=== PATIENT | male | born 1965 | race Caucasian/White ===

== ENCOUNTER 2024-04-02 11:05 | Emergency (ER) | payer OTHER, SELFPAY ==
--- NOTE | ~2024-04-02 | XR_ITS ---
EXAMINATION: XR ankle LT min 3V (accession [id number]), XR foot LT min 3V (accession [id number]) CLINICAL INFORMATION: fall, pain, swelling COMPARISON: None. TECHNIQUE: AP, lateral, and oblique views of the foot and 2 views ankle FINDINGS: Osseous fragments adjacent to the medial malleolus may reflect sequelae of age-indeterminate avulsion fracture. Joint spaces are maintained. Achilles tendon enthesopathy. Marked soft tissue swelling most notably along the lateral malleolus greater than medial malleolus, consider follow-up radiographs in 2 weeks to assess for any radiographically occult nondisplaced distal fibular fracture. No tibiotalar joint effusion. XR/XR ankle LT min 3V IMPRESSION: 1. Osseous fragments adjacent to the medial malleolus may reflect sequelae of age-indeterminate avulsion fracture, recommend correlation with point tenderness. 2. Marked soft tissue swelling most notably along the lateral malleolus greater than medial malleolus, consider follow-up radiographs in 2 weeks to assess for any radiographically occult nondisplaced distal fibular fracture. Electronically signed by: Lilly Carrasco MD 04/02/2024 01:40 PM EDT
--- NOTE | ~2024-04-02 | XR_ITS ---
EXAMINATION: XR ankle LT min 3V (accession [id number]), XR foot LT min 3V (accession [id number]) CLINICAL INFORMATION: fall, pain, swelling COMPARISON: None. TECHNIQUE: AP, lateral, and oblique views of the foot and 2 views ankle FINDINGS: Osseous fragments adjacent to the medial malleolus may reflect sequelae of age-indeterminate avulsion fracture. Joint spaces are maintained. Achilles tendon enthesopathy. Marked soft tissue swelling most notably along the lateral malleolus greater than medial malleolus, consider follow-up radiographs in 2 weeks to assess for any radiographically occult nondisplaced distal fibular fracture. No tibiotalar joint effusion. XR/XR foot LT min 3V IMPRESSION: 1. Osseous fragments adjacent to the medial malleolus may reflect sequelae of age-indeterminate avulsion fracture, recommend correlation with point tenderness. 2. Marked soft tissue swelling most notably along the lateral malleolus greater than medial malleolus, consider follow-up radiographs in 2 weeks to assess for any radiographically occult nondisplaced distal fibular fracture. Electronically signed by: Lilly Carrasco MD 04/02/2024 01:40 PM EDT
[2024-04-02 11:08] VITALS: BP 125/58; PULSE 62; RESP 16; TEMP 36.6; O2SAT 95; BMI 27.3
--- NOTE | 2024-04-02 11:09 | ED.LOWEXIN ---
HPI - Extremity Injury (Lower) General Chief Complaint: Extremity Injury, Lower Stated Complaint: l foot inj Time Seen by Provider: 04/02/24 11:14 Source: patient Mode of arrival: ambulatory Limitations: no limitations History of Present Illness ED Provider: BRETT MEDRANO PA-C HPI Narrative: 59 year old male with no significant pmhx presents to the ED today for evaluation of left ankle pain/swelling x 24 hours. Patient states that while at work yesterday he went to jump off of a platform approximately 1 ft high and rolled his ankle on landing. Reports immediate pain to the entire left ankle. Admits to taking a friend's pain pill yesterday with minimal improvement. Does not recall the name. Denies any hzdd-nqf-pyozevu pain medications today. Presents today with increased pain/ swelling to left ankle. He is utilizing crutches that he purchased from the drug store however still bearing weight on the ankle. Denies fever, chills, numbness/tingling/weakness of the LLE. Related Data Previous Rx's ?Medication ?Instructions ?Recorded oxycodone 5 mg tablet 5 mg PO Q8H PRN pain (scale score 04/02/24 4-6) #7 tabs Allergies Allergy/AdvReac Type Severity Reaction Status Date / Time No Known Allergies Allergy Verified 04/02/24 11:11 Review of Systems Review of Systems: Constitutional: No fever, chills, fatigue, night sweats, weight changes ENT/Mouth: No ear pain, hearing loss, nasal congestion, sinus pain, rhinorrhea, sore throat Eyes: No eye pain, swelling, redness, vision changes, discharge Cardio: No chest pain, palpitations, VICTORIA, orthopnea, peripheral edema Pulm: No SOB, cough, sputum, wheezing, dyspnea, hemoptysis GI: No nausea, vomiting, hematemesis, abdominal pain, diarrhea, constipation, hematochezia, melena : No irregular bleeding, dysuria, frequency, urgency, hesitancy, hematuria, flank pain, urinary flow changes, urinary incontinence or retention MSK: No back pain, neck pain, joint pain, myalgias, +left ankle pain Skin: No lesions, rashes Neuro: No weakness, numbness, paresthesias, LOC, dizziness, headache Psych: No anxiety/panic, depression, SI/HI, AH/VH All other systems reviewed and are negative. PMFSH Past Medical History Attestation statement: The following information was validated with the patient. Source: old records reviewed and nursing notes reviewed Social History Social History Advance Directives: No Advance Directives Information Provided: Yes Do you have a plan to hurt others: No Plan Physical Exam Vital Signs: Vital Signs: Last Vital Signs Temp 97.7 F 04/02/24 14:28 Pulse 60 04/02/24 14:28 Resp 20 04/02/24 14:28 BP 138/70 04/02/24 14:28 Pulse Ox 98 04/02/24 14:28 O2 Del Method Room Air 04/02/24 14:28 BMI result Body Mass Index 27.3 Vital signs stable. General: Well appearing, in no acute distress. Skin: Warm, dry, intact. No rashes or lesions. Head: Normocephalic, atraumatic. Cardiac: Chest wall symmetric. RRR. No MRG. No JVD. Lungs: Normal respiratory effort without accessory muscle use. CTA bilaterally. No rales, rhonchi, or wheezes.? Back: No midline spinous or paraspinal tenderness. No step off deformity. Ext: diffuse swelling to entire left ankle, tender to palpation over both medial and lateral malleoli without palpable deformity. No overlying erythema or ecchymosis. Able to move all toes. 2+ PT/DP pulse intact. Ambulating using crutches. cap refill <2 sec. Neuro: AOx3. Normal speech. Sensation intact to light touch. NV intact distally. Ambulating with crutches. Psych: Appropriate mood and affect. Responds appropriately to questions. Course Course Course Narrative: This is an RME performed by Shelly Esteban CNP: Additional HPI, ROS, PE not included below will be deferred to primary provider. Patient is a 59-year-old male who presents emergency department for evaluation of a left ankle injury. States he jumped down approximately foot resulting in a twisting injury. Has pain to the ankle and foot with swelling. Has been using crutches but this continues to persist. Plan : XR Reevaluation(s) Reevaluation #1: 1420 --x-ray left ankle/foot showing osseous fragments adjacent to the medial malleolus, possibly reflecting sequelae of age indeterminate avulsion fracture recommending correlation with point tenderness. There is marked soft tissue swelling most notably along the lateral malleolus greater than medial malleolus, question occult nondisplaced distal fibular fracture. Given point tenderness and swelling over both medial and lateral malleoli, I placed patient in combination posterior short-leg and stirrup splint. patient has crutches with him from home and they were adjusted by agricultural engineering technician for his appropriate height. Educated patient on NWB. Oxycodone sent to pharmacy for pain control. Advised patient to call the orthopedic office Thursday morning to schedule a follow up appointment this week. Patient has remained stable throughout ED visit today. Discussed worrisome signs and symptoms and when to return to the ED. All questions answered at this time. Patient is agreeable with disposition and stable for discharge. Medications Administered Discontinued Medications Generic Name Dose Route Start Last Admin Trade Name Freq PRN Reason Stop Dose Admin Ketorolac Tromethamine 30 mg 04/02/24 11:50 04/02/24 11:55 Ketorolac Tromethamine 30 Mg/Ml Vial IM 04/02/24 11:51 30 mg ONCE ONE Administration Medical Decision Making Medical Decision Making MDM Narrative: 59 year old male with no significant pmhx presents to the ED today for evaluation of left ankle pain/swelling x 24 hours. Vital signs stable. Afebrile. He is nontoxic-appearing in no acute distress. On exam, diffuse swelling to entire left ankle, tender to palpation over both medial and lateral malleoli without palpable deformity. No overlying erythema or ecchymosis. Able to move all toes. 2+ PT/DP pulse intact. Ambulating using crutches. Differential diagnosis includes ligament/tendon injury, fracture, contusion. Unlikely neurovascular compromise, compartment syndrome, threat to limb, dislocation. Presentation not consistent with gout, pseudogout, septic joint, septic arthritis, DVT. Plan for imaging and pain control. Differential Diagnosis Differential Diagnoses: The differential diagnosis associated with the presentation includes as above. Admission/Observation Not indicated Independent Interpretation I performed an independent interpretation of an: Plain X-Ray Interpretation: X-ray left foot/ankle showing avulsion fracture to medial malleoli, agree with radiologist's interpretation. Radiology Impression Discussion of test interpretation with radiology: I have reviewed the radiologist's reading. Radiologist Impression: EXAMINATION: XR ankle LT min 3V (accession [id number]), XR foot LT min 3V (accession [id number]) CLINICAL INFORMATION: fall, pain, swelling COMPARISON: None. TECHNIQUE: AP, lateral, and oblique views of the foot and 2 views ankle FINDINGS: Osseous fragments adjacent to the medial malleolus may reflect sequelae of age-indeterminate avulsion fracture. Joint spaces are maintained. Achilles tendon enthesopathy. Marked soft tissue swelling most notably along the lateral malleolus greater than medial malleolus, consider follow-up radiographs in 2 weeks to assess for any radiographically occult nondisplaced distal fibular fracture. No tibiotalar joint effusion. XR/XR ankle LT min 3V IMPRESSION: 1. Osseous fragments adjacent to the medial malleolus may reflect sequelae of age-indeterminate avulsion fracture, recommend correlation with point tenderness. 2. Marked soft tissue swelling most notably along the lateral malleolus greater than medial malleolus, consider follow-up radiographs in 2 weeks to assess for any radiographically occult nondisplaced distal fibular fracture. Electronically signed by: Lilly Carrasco MD 04/02/2024 01:40 PM EDT Prescription Management I considered prescription management with: Pain Medication (Oxycodone) Social Determinants Patient?s care significantly limited by Social Determinants of Health including: Other Social Determinant of Health Procedures Orthopedic Splinting/Casting Injury #1: Side: left Lower Extremity Injury Location: ankle Lower Extremity Immobilizer: posterior splint and stirrup splint Other Orthopedic Equipment: crutches Critical Care Time Critical Care Time Critical Care Time: No Discharge Plan Discharge Clinical Impression: Avulsion fracture of medial malleolus Patient Disposition: Home, Self-Care Instructions: Ankle Fracture (ED), Crutch Instructions (ED) Additional Instructions: You have been evaluated in the Emergency Department today for ankle pain. Your evaluation showed a fracture of your ankle. I have placed your ankle in a splint today. Avoid getting the splint wet. We have provided crutches for you to use while your ankle heals. Please rest, ice, and elevate your ankle. I recommend you take 600mg ibuprofen every 6 hours or tylenol 650mg every 6 hours as needed for pain. If needed, you can alternate these medications so that you take one medication every 3 hours. For example, at noon take ibuprofen, then at 3pm take tylenol, then at 6pm take ibuprofen.? Please take oxycodone as directed as necessary for breakthrough pain. Please follow-up with an orthopedic surgeon in 1 week. You have been provided with a referral. Call them to make an appointment, they will not call you. Return to the Emergency Department if you experience worsening pain, numbness, tingling, change of color in your toes, or any other concerning symptoms. Prescriptions: New oxycodone 5 mg tablet 5 mg PO Q8H PRN (Reason: pain (scale score 4-6)) Qty: 7 0RF Rx Instructions: Partial Fill upon patient request. Referrals: [facility] Sur[facility] [Provider Group] - 3 days Stand Alone Forms: Work/School Release Interventions: ED Discharge Assessment Last Done: 04/02/24 14:28 Discharge Date/Time: 04/02/24 14:31 Print Language: Ghanaian
--- OUTSIDE RECORDS SUMMARY | 2024-04-02 11:40 | XMS_ITS | Continuity of Care Document ---
Author Organization [facility] Address [address] [place] [address]- Care Team Providers Care Electronic Security Specialist Name Role Phone Not on Staff, PCP Primary Care Physician Unavail able Encounter [facility] Date(s): 08/07/23 - 08/14/23 [facility] [address] [place] [address]- Encounter Diagnosis Elevated BP without diagnosis of hypertension(Discharge Diagnosis) - 08/07/23 History of detached retina repair(Discharge Diagnosis) - 08/07/23 Obese class I(Discharge Diagnosis) - 08/07/23 Dupuytren's contracture of both hands(Discharge Diagnosis) - 08/07/23 Alcohol dependence(Discharge Diagnosis) - 08/07/23 Bilateral chronic knee pain(Discharge Diagnosis) - 08/07/23 Attending Physician: Yovani Sims DO Referring Physician: Daphnie Smith NP Allergies, Adverse Reactions, Alerts No Known Medication Allergies Immunizations Given and Recorded Vaccine Date Status Refusal Reason tetanus-diphtheria toxoids (Td) 06/05/12 Recorded Medications No Known Medications Problem List Condition Confirmation Course Effective Dates Status Health atus Informant Alcohol dependence Confirmed Active Dupuytren's contracture of both hands Confirmed Active Obese class I Confirmed Active Diagnosis Diagnosis Type Effective Dates Health Status Clinical Service Informant Elevated BP without diagnosis of hypertension Discharge Diagnosis 08/07/23 History of detached retina repair 1 Discharge Diagnosis 08/07/23 Obese class I Discharge Diagnosis 08/07/23 Dupuytren's contracture of both hands Discharge Diagnosis 08/07/23 Alcohol dependence Discharge Diagnosis 08/07/23 Bilateral chronic knee pain Discharge Diagnosis 08/07/23 01:23 pm - Daphnie Smith NP 1978 Procedures Procedure Date Related Diagnosis Body Site Status Retinal operation 1 Compl eted 1detached retina repair 1977 Vital Signs Most recent to oldest [Reference Range]: 1 Height 177 cm (08/07/23 1:00 PM) Weight 97.5 kg (08/07/23 1:00 PM) Oxygen Saturation [94-100 %] 97 % (08/07/23 1:00 PM) Pulse Rate [55-90 bpm] 58 bpm (08/07/23 1:00 PM) Body Mass Index [18.5-24.99 kg/m2] 31.12 kg/m2 *>HHI* (08/07/23 1:00 PM) Blood Pressure [90-138/55-84 mm Hg] 160/ 78mm Hg *H* (08/07/23 1:00 PM) Mode of Delivery (Oxygen) Room air (08/07/23 1:00 PM) Blood pressure sites Arm, left (08/07/23 1:00 PM) Social History Social History Type Response Smoking Status Former smoker, quit more than 30 days ago;Former smokeless tobacco user, quit more than 30 days ago; Other: chewing tobacco x 1 year;; entered on: 08/07/23 Sex Note * Leanna Andrew: PERFORM, SIGN, VERIFY Event Display: Patient Education/Instruction Authored Date: [id number] [facility] *[facility] Clinical Summary Name AKSHAT STACY Age 58 Years 1965 PCP Not on Staff, PCP PCP Phone Visit Date 08/07/2023 12:40:00 Additional Instructions: Scheduled Appointments?? Future Appointments ?*Byst??[facility]??[facility] ?Phone:??--?Fax:??-- ?Appt. Date:??08/26/2023?3:15 PM ?Scheduled Provider:??[facility] Clinical Schedule B Follow-Up Instructions ?? With: Address: When: Daphnie Smith [address] [place], [place] [id number] [facility] (1) 11/06/2023 1:00 PM Comments: ANJUM With: Address: When: [address] [address] Within 2 to 3 weeks Comments: Nurse visit- BP check Diagnosis Pain in right knee; Elevated blood-pressure reading, without diagnosis of hypertension; Body mass index [BMI] 30.0-30.9, adult; Alcohol dependence, uncomplicated; Other specified postprocedural states; Palmar fascial fibromatosis [Dupuytren] Medications: Please continue your medications until treatment is completed or stopped by your provider. Discuss any questions related to medications with your provider. Allergy Info:?? No Known Medication Allergies Medications Given This Visit Future Orders ?Folate Level? Order Date:08/07/23?- Complete on or after?08/07/23 ?Vitamin B12 Level? Order Date:08/07/23?- Complete on or after?08/07/23 ?Comprehensive Metabolic Panel? Order Date:08/07/23?- Complete on or after?08/07/23 ?CBC w/ Differential? Order Date:08/07/23?- Complete on or after?08/07/23 ?Knee 3 Views Left? Order Date:08/07/23?- Complete on or after?08/07/23 ?Knee 3 Views Right? Order Date:08/07/23?- Complete on or after?08/07/23 Vital Signs Height 177 cm Weight 97.5 kg BMI 31.12 kg/m2 Blood Pressure 160 mm Hg/78 mm Hg Temperature Pulse Rate 58 bpm Respiratory Rate 02 Sat Mode of Delivery 97 %/Room air You can now view a summary of your hospital visit from the comfort of your home through a free online portal called Higgle. Higgle is a website that allows you to securely view your medical information including discharge summary, medications and follow-up visits. ??You can alsosend a secure electronic message to your doctor???s office to request appointments, renew medications or just ask a question. You can enroll at [email or web address] or register during your next office visit. Disclaimer:?? The information provided is of a general nature and is intended to be used in conjunction with the recommendations and advice of your health care practitioner. ??Every effort has been made to ensure that the information provided is accurate and complete at the time it is provided to you however, as your needs change, or, as new ??information becomes available, different or additional instructions may be required. If you have questions, please consult with your primary care provider or pharmacist, as appropriate. ??This information is not intended to serve as substitution for assessment and evaluation by a qualified health care provider. If you do not have a primary care provider, you may find a [facility] provider by calling [employer] at [phone]. [facility], in keeping with [facility] guidance, no longer requires face masks for staff, patientsor visitors in most situations. Similar to time spent indoors at other locations, there is the chance that you were exposed to respiratory viruses during your time with us (such as flu or COVID-19).? If you develop symptoms concerning for a viral respiratory infection, please seek testing (and treatment if indicated) from your medical provider or home test kit. For information about the plan of care including goals and instructions for your diagnosis, please see the patient education orders section of this document. Patient Education Materials?? The content of this educational material or handout may have been modified, supplemented, or adapted from its original content and format to support your individualized medical care. Patient Care team information Care Team Personnel Name: Not on Staff, PCP Position: S Physician (General Medicine) Member Role: PCP Care Team Related Persons Name: FELIPE STACY Address: [address] [address]
--- OUTSIDE RECORDS SUMMARY | 2024-04-02 11:40 | XMS_ITS | Patient Health Record ---
Author Organization [facility] Address [address] [place] [address] Care Team Providers Care Captain/Check Airman Name Role Phone Yovani Sims Primary Care Provider Demond Rogers Unavailable [phone] ALLERGIES No Known Allergies REASON FOR REFERRAL No Information SOCIAL HISTORY Tobacco Use: Social History Observation Description Date Details (start date - stop date) Former Smoker NA - NA Sex Assigned At : Social History Observation Description Sex Assigned At Unknown Tobacco Use/Smoking Question Answer Notes Are you a: former smoker Additional Findings: Tobacco Non-User Current no n-smoker Alcohol Screen Question Answer Notes Did you have a drink containing alcohol in the p ast year? Yes Points 0 Interpretation Negative Tobacco use other than smoking: Question Answer Notes Are you an other tobacco user? No PROBLEMS Problem Type ICD Code Onset Dates Problem Status W/U Status Risk SNOMED Code Notes Problem Hallux valgus (acquired), left foot (M20.12) Active confirmed Acquired hallux valgus (61078594) VITAL SIGNS Height 5 ft 10 in in 07/17/2023 Weight 190 lbs 07/17/2023 BMI 27.26 kg/m2 07/17/2023 Encounters Encounter Location Date Provider Diagnosis [facility] [address] [place] [address] 07/17/2023 Demond Mi Pain in left foot M79.672 ; Pain in left ankle and joints of left foot M25.572 ; Bursitis of left foot M77.52 ; Hallux valgus (acquired), left foot M20.12 and Hallux limitus of left foot M20.5X2 ASSESSMENTS Encounter Date Diagnosis Assessment Notes Treatment Notes Treatment Clinical Notes 07/17/2023 Pain in left ankle and joints of left foot (ICD-10 - M25.572) 07/17/2023 Pain in left foot (ICD-10 - M79.672) 07/17/2023 Bursitis of left foot (ICD-10 - M77.52) 07/17/2023 Hallux valgus (acquired), left foot (ICD-10 - M20.12) 07/17/2023 Hallux limitus of left foot (ICD-10 - M20.5X2) PLAN OF TREATMENT Pending Test Test Name Order Date X ray : Foot, left 3V 07/17/2023 Insurance Providers Payer Name Payer Address Payer Phone Subscriber Number Group Number Insured Name Patient Relationship to Insured Coverage Start Date Coverage End Date [facility] [address] [facility] [id number] Sai Shearer Self - patient is the insured MEDICAL (GENERAL) HISTORY Medical History History ICD Code Back,Hip,and Knee pain Broken bones detached retina Surgical History Surgery Date(Month/Year) detached retina 1979 broken finger compound fx 1988
--- OUTSIDE RECORDS SUMMARY | 2024-04-02 11:40 | XMS_ITS | Continuity of Care Document ---
Author Organization [facility] Address [address] [place] [address]- Care Team Providers Care Surveillance Sensor Officer Name Role Phone Yovani Sims DO Primary Care Physician [phone] [id number] [address] [place], [place] [address] Allergies, Adverse Reactions, Alerts No Known Medication Allergies Immunizations Given and Recorded Vaccine Date Status Refusal Reason tetanus/diphtheria/pertussis, acel(Tdap) 12/24/23 Given tetanus-diphtheria toxoids (Td) 06/05/12 Recorded Problem List Condition Confirmation Course Effective Dates Status H ealth Status Informant Alcohol dependence Confirmed Active Dupuytren's contracture of both hands Confirmed Active Elevated BP without diagnosis of hypertension Confirmed Active Lump of skin Confirmed Active Obese class I Confirmed Active Bilateral chronic knee pain Confirmed Active Left shoulder pain Confirmed Active Encounter for routine adult health examination Confirmed Active Encounter for screening for cardiovascular disorders Confirmed Active Screening for malignant neoplasm of colon Confirmed Active Screening for malignant neoplasm of prostate Confirmed Active Need for Tdap vaccination Confirmed Active Social History Social History Type Response Smoking Status Former smoker, quit more than 30 days ago;Former smokeless tobacco user, quit more than 30 days ago; Other: chewing tobacco x 1 year;; entered on: 08/07/23 Sex Patient Care team information Care Team Personnel Name: Yovani Sims DO Position: [facility] Physician - Primary Care Member Role: PCP Address: Address: [address] [place] [id number] Care Team Related Persons Name: FELIPE STACY Address: home [address] [place] [id number]
--- OUTSIDE RECORDS SUMMARY | 2024-04-02 11:40 | XMS_ITS | Continuity of Care Document ---
Author Organization [facility] Address [address] [place] [address]- Care Team Providers Care Press Operator Meat Name Role Phone Yovani Sims DO Primary Care Physician Encounter [facility] Date(s): 09/23/23 - 10/23/23 [facility] [address] [place], [place] [address] Allergies, Adverse Reactions, Alerts No Known Medication Allergies Immunizations Given and Recorded Vaccine Date Status Refusal Reason tetanus-diphtheria toxoids (Td) 06/05/12 Recorded Problem List Condition Confirmation Course Effective Dates Status Health St atus Informant Alcohol dependence Confirmed Active Dupuytren's contracture of both hands Confirmed Active Obese class I Confirmed Active Social History Social History Type Response Smoking Status Former smoker, quit more than 30 days ago;Former smokeless tobacco user, quit more than 30 days ago; Other: chewing tobacco x 1 year;; entered on: 08/07/23 Sex Patient Care team information Care Team Personnel Name: Yovani Sims DO Position: [facility] Physician - Primary Care Member Role: PCP Address: Address: [address] [place] [id number] Care Team Related Persons Name: FELIPE STACY Address: home [address] [place] [address]
--- OUTSIDE RECORDS SUMMARY | 2024-04-02 11:40 | XMS_ITS | Continuity of Care Document ---
Author Organization [facility] Address [address] [place] [address]- Care Team Providers Care Retort Press Operator Name Role Phone Yovani Sims DO Primary Care Physician [phone] Encounter [facility] Date(s): 08/07/23 - 09/25/23 [facility] [address], [place] [address] Attending Physician: Not on Staff, Attending MD Allergies, Adverse Reactions, Alerts No Known Medication [...] Primary Care Member Role: PCP Address: Address: [address] [place] [address] Care Team Related Persons Name: FELIPE STACY Address: home [address] [place] [address]
--- OUTSIDE RECORDS SUMMARY | 2024-04-02 11:40 | XMS_ITS | Continuity of Care Document ---
Author Organization [facility] Address [address] [place] [address]- Care Team Providers Care Classroom Technology Coach Name Role Phone Not on Staff, PCP Primary Care Physician Unavail able Encounter [facility] Date(s): 05/14/23 - 06/13/23 [facility] [address] [place] [address]- Patient Care team information Care Team Personnel Name: Not on Staff, PCP Position: [facility] Physician (General Medicine) Member Role: PCP Care Team Related Persons Name: FELIPE STACY Address: [address] [place] [address]
--- OUTSIDE RECORDS SUMMARY | 2024-04-02 11:40 | XMS_ITS | Continuity of Care Document ---
Author Organization [facility] Address [address] [place] [address]- Care Team Providers Care Historian Research Assistant Name Role Phone Yovani [place] DO Primary Care Physician [place] [facility] 08/26/23 - 09/25/23 [facility] [address], [place] [address] Attending Physician: Deena Hunter Admitting Physician: Deena Hunter Referring Physician: Deena Hunter Allergies, Adverse Reactions, Alerts No Known Medication [...] Team Personnel Name: Yovani [place] DO Position: S Physician - Primary Care Member Role: PCP Address: Address: [address] [place] [address] Care Team Related Persons Name: REGIS FELIPE Address: [address] [place] [address]
--- OUTSIDE RECORDS SUMMARY | 2024-04-02 11:40 | XMS_ITS ---
Author Organization [facility] Address [address] [place] [address] Care Team Providers Care Enterprise Solutions Architect Name Role Phone Yovani [place] Primary Care Provider Demond Rogers Unavailable [phone] ALLERGIES No Known Allergies REASON FOR VISIT Foot pain SOCIAL HISTORY Tobacco Use: Social History Observation [...] foot (M20.12) Active confirmed Acquired hallux valgus (02031635) VITAL SIGNS Height 5 ft 10 in in 07/17/2023 Weight 190 lbs 07/17/2023 BMI 27.26 kg/m2 07/17/2023 Encounters Encounter Location Date Provider Diagnosis [facility] [address] [place] [address] 07/17/2023 Demond Mi Pain in left foot M79.672 ; Pain in left ankle and joints of left foot M25.572 ; Bursitis of left foot M77.52 ; Hallux valgus (acquired), left foot M20.12 and Hallux limitus of left foot M20.5X2 ASSESSMENTS Encounter Date Diagnosis Assessment Notes Treatment Notes Treatment Clinical Notes 07/17/2023 Pain in left foot (ICD-10 - M79.672) 07/17/2023 Pain in left ankle and joints of left foot (ICD-10 - M25.572) 07/17/2023 Bursitis of left foot (ICD-10 - M77.52) 07/17/2023 Hallux valgus (acquired), left foot (ICD-10 - M20.12) 07/17/2023 Hallux limitus of left foot (ICD-10 - M20.5X2) PLAN OF TREATMENT Pending Test Test Name Order Date X ray : Foot, left 3V 07/17/2023 Next Appt Details Follow Up: prn, Reason: Progress Notes * Examination Category Sub-Category Detail Notes Neurological SENSORY: Neurological exa m reveals intact sensorium, pain sensation normal, vibration sensation intact, pinprick sensation is normal in the lower extremities, Pt denies, anesthesia, burning, paresthesia, tingling, B/L TINEL'S COMPRESSION: Negative, Saphenous nerve distribution DEEP TENDON REFLEXES: Achilles, 2/4, B/L Dermatologic SKIN FINDINGS: Skin exam reveal s normal texture, elasticity, and turgor. There are no masses. The interspaces are clear Orthopedic BUNION: Dorso-Medially p rominent 1st MPJ, (+) Pain on palpation, inflammation present medially, Lateral tracking 1st MPJ incompletely reducible, LEFT , Limited 1st MPJ Dorsal ROM , Pain assoc with 1st MPJ ROM , at end range of dorsiflexion , Crepitus with ROM absent MUSCLE STRENGTH: 5/5 all groups in a symmetrical fashion , B/L General Examination GENERAL APPEARANCE: Reveals a pleasant, alert, well- nourished, well-developed, well hydrated individual, who demonstrates proper attention to hygiene/body habitus, and is in no acute distress, Pt serves as own historian for office visit today ORIENTED: person, place, and t neli Vascular DP PULSES: 3/4, B/L PT PULSES: 3/4, B/L CAPILLARY FILL TIME: immediate, all digi ts, B/L SKIN TEMPERTURE GRADIENT OF THE LOWER EXTERMITIES: warm to cool, proximal to distal, B/L HAIR GROWTH/TEXTURE/ELASTICITY/TURGOR: n ormal, B/L EDEMA: absent, B/L PIGMENTATION: normal, B/L X-Rays - IMAGING REPORT Findings: normal b one and soft tissue density consistent for patients age and sex Fracture: Negative fractures i dentified HAV: increased First Inte rmetatarsal angleand Hallux Abductus angle consistent with Bunion deformity noted, hypertrophy of the dorsal and medial 1st MTH without subchondral cyst , metatarsus primus elevatus, mild, primus metatarsal protrusion, Plus 1 mm, tibial sesamoid position, 2, there is asymmetrical narrowing of the 1st MPJ joint space, there is increased density of the 1st MPJ with asymmetrical joint space narrowing, there is squaring of the 1st MTH, there is an exostosis located at the dorsal aspect of the 1st MTH Views: 3 views of Foot, AP, LAT, MO, LEFT Clinical Indication(s): Evaluate Biomech anical Deformity History and Physical Notes * HPI (History of Present Illness) Category Sub-Category Detail Notes Foot Pain Location: Inside, Great to e joint, LEFT Duration: several months Course: worse Aggravated: any pressure , kicki ng cement blocks at job/occupation Treatments: rest/alter normal da judi activity
--- OUTSIDE RECORDS SUMMARY | 2024-04-02 11:40 | XMS_ITS | Continuity of Care Document ---
Author Organization [facility] Address [address] [place] [address]- Care Team Providers Care Buckle Sewer Name Role Phone Yovani [place] DO Primary Care Physician [id number] [address] [place] [address]- Encounter Diagnosis Encounter for routine adult health examination(Discharge Diagnosis) - 12/23/23 Alcohol dependence(Discharge Diagnosis) - 12/23/23 Dupuytren's contracture of both hands(Discharge Diagnosis) - 12/23/23 Obese class I(Discharge Diagnosis) - 12/23/23 Elevated BP without diagnosis of hypertension(Discharge Diagnosis) - 12/23/23 Encounter for screening for cardiovascular disorders(Discharge Diagnosis) - 12/24/23 Screening for malignant neoplasm of colon(Discharge Diagnosis) - 12/24/23 Screening for malignant neoplasm of prostate(Discharge Diagnosis) - 12/24/23 Need for Tdap vaccination(Discharge Diagnosis) - 12/24/23 Bilateral chronic knee pain(Discharge Diagnosis) - 12/24/23 Left shoulder pain(Discharge Diagnosis) - 12/24/23 Lump of skin(Discharge Diagnosis) - 12/24/23 Attending Physician: Luis BECK, Daphnie Ramey Allergies, Adverse Reactions, Alerts No Known Medication Allergies Immunizations Given and Recorded Vaccine Date Status Refusal Reason tetanus/diphtheria/pertussis, acel(Tdap) 12/24/23 Given tetanus-diphtheria toxoids (Td) 06/05/12 Recorded Medications No [...] Active Need for Tdap vaccination Confirmed Active Diagnosis Diagnosis Type Effective Dates Health Status Clinical Service Informant Encounter for routine adult health examination Discharge Diagnosis 12/23/23 Alcohol dependence Discharge Diagnosis 12/23/23 Dupuytren's contracture of both hands Discharge Diagnosis 12/23/23 Obese class I Discharge Diagnosis 12/23/23 Elevated BP without diagnosis of hypertension Discharge Diagnosis 12/23/23 Encounter for screening for cardiovascular disorders Discharge Diagnosis 12/24/23 Screening for malignant neoplasm of colon Discharge Diagnosis 12/24/23 Screening for malignant neoplasm of prostate Discharge Diagnosis 12/24/23 Need for Tdap vaccination Discharge Diagnosis 12/24/23 Bilateral chronic knee pain Discharge Diagnosis 12/24/23 Left shoulder pain Discharge Diagnosis 12/24/23 Lump of skin Discharge Diagnosis 12/24/23 Vital Signs Most recent to oldest [Reference Range]: 1 2 3 Height 174.9 cm (12/24/23 8:13 AM) 174.9 cm (12/24/23 7:57 AM) 174.9 cm (12/24/23 7:46 AM) Weight 93.3 kg (12/24/23 7:46 AM) Oxygen Saturation [94-100 %] 97 % (12/24/23 7:46 AM) Pulse Rate [55-90 bpm] 52 bpm *L* (12/24/23 7:46 AM) Body Mass Index [18.5-24.99 kg/m2] 30.5 kg/m2 *>HHI* (12/24/23 7:46 AM) Blood Pressure [90-138/55-84 mm Hg] 128/76mm Hg (12/24/23 8:13 AM) 148/84mm Hg *H* (12/24/23 7:57 AM) 142/84mm Hg *H* (12/24/23 7:46 AM) Blood pressure sites Arm, right (12/24/23 7:57 AM) Arm, right (12/24/23 7:46 AM) Weight Obtained Via Standing scale (12/24/23 7:46 AM) Social History Social History Type Response Smoking Status Former smoker, quit more than 30 days ago;Former smokeless tobacco user, quit more than 30 days ago; Other: chewing tobacco x 1 year;; entered on: 08/07/23 Sex Note * Kimmie Wiggins: PERFORM Event Display: Patient Education/Instruction Authored Date: [id number] Ambulatory Adult Visit Summary [facility] [address] [place] [address] Name: AKSHAT STACY : 1965?? Visit: 12/24/2023 07:40?? Ambulatory Visit Instructions ?? Your Care Team Primary Care Provider Levi FRANKS, Yovani? This Visit Provider Daphnie Smith NP Your Diagnosis Encounter for routine adult health examination Alcohol dependence Dupuytren's contracture of both hands Obese class I Elevated BP without diagnosis of hypertension Encounter for screening for cardiovascular disorders Screening for malignant neoplasm of colon Screening for malignant neoplasm of prostate Need for Tdap vaccination Bilateral chronic knee pain Left shoulder pain Lump of skin Vitals Signs Pulse Rate:??52 bpm??Low Height: 174.9 cm Systolic Blood Pressure: 128 mm Hg Weight: 93.3 kg Diastolic Blood Pressure: 76 mm Hg Body Mass Index:??30.5 kg/m2??Critical Oxygen Saturation: 97 % Body surface area: 2.13 What to do next Instructions From Your Provider 1. complete fasting labs--ok for black coffee and water Follow-Up Appointments Follow Up with??Daphnie Smith NP When:??12/27/2024 07:40 AM EDT Where: [address] [place] [address]- Future Orders XR Knee 1 or 2 Views Left, Routine, Reason for Exam: Pain, Once, *Est. 12/24/23 XR Knee 1 or 2 Views Right, Routine, Reason for Exam: Pain, Once, *Est. 12/24/23 XR Shoulder Min 2 Views Left, Routine, Reason for Exam: Pain, Once, *Est. 12/24/23 Lipid Panel - Routine, Once, 12/24/23 8:00:00 EDT, Order for Today, [facility], Blood?? PSA Screen - Routine, Once, 12/24/23 8:07:00 EDT, Order for Today, [facility], Blood?? Test Performed Below is a partial list of the tests performed during your Visit. You may have had other tests and procedures not included in this list. Please discuss all test results with your provider. Lipid Panel?-- Results Pending -- PSA Screen?-- Results Pending -- You will be contacted within 72 hours with your results. Medications and Immunizations Administered Immunizations Given During Visit Given Vaccine Date tetanus/diphtheria/pertussis, acel(Tdap) 12/24/2023 Medications Given During Visit Medication ?? Dose ?? Route ?? Last Dose Times ?? tetanus/diphtheria/pertussis, acel(Tdap)?0.50 mL?? Intramuscular?? 24-DEC-2023 08:17:00.00?? Allergies (NKA means No Known Allergies) No Known Medication Allergies Common Emergency Awareness Tips IS IT A STROKE? Act FAST and Check for these signs: FACE Does the face look uneven? ARM Does one arm drift down? SPEECH Does their speech sound strange? TIME Call at any sign of stroke ?? Heart Attack Signs Chest discomfort: Most heart attacks involve discomfort in the center of the chest and lasts more than a few minutes, or goes away and comes back. It can feel like uncomfortable pressure, squeezing, fullness or pain. Discomfort in upper body: Symptoms can include pain or discomfort in one or both arms, back, neck, jaw or stomach. Shortness of breath: With or without discomfort. Other signs: Breaking out in a cold sweat, nausea, or lightheaded. Remember, MINUTES DO MATTER. If you experience any of these heart attack warning signs, call to get immediate medical attention! ?? Smoking can increase your chances of developing chronic health problems and can cause harmful effects to other family members in your house. If you smoke, you are strongly encouraged to quit. Please call [employer] at [phone] or 8-081-544Marfeel ([phone]) or log in to [email or web address] for referrals to smoking cessation programs. ?? The National Suicide Prevention Hotline is available 23/02 if you or someone you know needs to find a reason to keep living. By calling 2-995-382-talk (2233) you'll be connected to a skilled, trained counselor at a crisis center in your area. [facility] Portal You can view and manage your care through the patient portal or by using a health care anna of your choosing. [employer] is a website that allows you to securely view your medical information including your hospital discharge summary, office visit summaries, medications and follow-up visits. You can also request appointments, renew medications, and request access to your medical information using a health care anna of your choosing, or just ask a question. You can enroll at [email or web address] or register during your next office visit. [facility], in keeping with [facility] guidance, no longer requires face masks for staff, patientsor visitors in most situations. Similiar to time spent indoors at other locations, there is the chance that you were exposed to repiratory viruses during your time with us (such as flu or COVID-19). If you develop symptoms concerning for a viral respiratory infection, please seek testing (and treatment if indicated) from your medical provider or home test kit. ?? Disclaimer: The information provided is of a general nature and is intended to be used in conjunction with the recommendations and advice of your health care practitioner. Every effort has been made to ensure that the information provided is accurate and complete at the time it is provided to you however, as your needs change, or, as new information becomes available, different or additional instructions may be required. ?? If you have questions, please consult with your primary care provider or pharmacist, as appropriate. This information is not intended to serve as substitution for assessment and evaluation by a qualified health care provider. If you do not have a primary care provider, you may find a [facility] provider by calling [facility] at [phone]. Patient Care team information Care Team Personnel Name: Yovani [place] DO Position: [facility] Physician - Primary Care Member Role: PCP Address: Address: [address] [place] [address] [place] Care Team Related Persons Name: FELIPE STACY Address: [address] [address]
--- OUTSIDE RECORDS SUMMARY | 2024-04-02 11:40 | XMS_ITS | Continuity of Care Document ---
Author Organization [facility] Address [address] [place] [address]- Care Team Providers Care Nc Machinist Name Role Phone Yovani [place] DO Primary Care Physician [phone] Encounter [facility] Date(s): 09/23/23 - 10/23/23 [facility] [address] [place], [place] [address] Allergies, Adverse Reactions, Alerts No Known Medication [...] Primary Care Member Role: PCP Address: Address: [address] [place] [address] Care Team Related Persons Name: FELIPE STACY Address: home [address] [place] [address]
--- OUTSIDE RECORDS SUMMARY | 2024-04-02 11:40 | XMS_ITS | Continuity of Care Document ---
Author Organization [facility] Address [address] [place] [address]- Care Team Providers Care Client Advisor Name Role Phone Yovani [place] DO Primary Care Physician [id number] Date[facility] 08/08[facility] 12/06/23 [facility] [address], [place] [address] Attending Physician: Luis BECK, Daphnie Ramey Allergies, [...] Primary Care Member Role: PCP Address: Address: [address] [place] [address] Care Team Related Persons Name: FELIPE STACY Address: home [address] [place] [address]
[2024-04-02] MEDS: Ketorolac Tromethamine 30 MG/ML VIAL IM (11:55)
--- NOTE | 2024-04-02 14:21 | PC.NURSE ---
pt splinted by provider, tolerated well
[2024-04-02 14:28] VITALS: BP 138/70; PULSE 60; RESP 20; TEMP 36.5; O2SAT 98
--- NOTE | 2024-04-02 14:28 | PC.NURSE ---
pts own crutches adjusted to appropriate height and crutch training provided.
== END 2024-04-02 14:31 | disposition home or self-care (01) ==
PROVIDERS: Emergency Provider Emergency Medicine
DX: S82.52XA Displaced fracture of medial malleolus of left tibia, initial encounter for closed fracture (principal); X50.1XXA Overexertion from prolonged static or awkward postures, initial encounter; Y93.39 Activity, other involving climbing, rappelling and jumping off; Y92.89 Other specified places as the place of occurrence of the external cause; Y99.0 Civilian activity done for income or pay
CPT/HCPCS: 29515; 73610; 73630; 96372; 99283; 99284; J1885

== ENCOUNTER 2024-04-04 08:37 | Emergency (ER) | payer OTHER, SELFPAY ==
--- NOTE | ~2024-04-04 | XR_ITS ---
EXAMINATION: X-RAY ANKLE, LEFT. XRAY FOOT LEFT, LEFT. CLINICAL INFORMATION: Left ankle and foot pain. Possible fracture. COMPARISON: Radiographs 04/02/2024 TECHNIQUE: 3 views of the left ankle. 3 views of the left foot. Images are performed with the patient in a cast. FINDINGS: There are small chronic calcifications at the tip of the medial malleolus. The ankle mortise is preserved. There is no acute fracture or malalignment. Soft tissue swelling is slightly decreased. XR/XR ankle LT 2V IMPRESSION: No acute fracture. Soft tissue swelling is slightly decreased. Electronically signed by: Tone Hayward MD 04/04/2024 09:56 AM EDT
--- NOTE | ~2024-04-04 | XR_ITS ---
EXAMINATION: X-RAY ANKLE, LEFT. XRAY FOOT LEFT, LEFT. CLINICAL INFORMATION: Left ankle and foot pain. Possible fracture. COMPARISON: Radiographs 04/02/2024 TECHNIQUE: 3 views of the left ankle. 3 views of the left foot. Images are performed with the patient in a cast. FINDINGS: There are small chronic calcifications at the tip of the medial malleolus. The ankle mortise is preserved. There is no acute fracture or malalignment. Soft tissue swelling is slightly decreased. XR/XR foot LT 2V IMPRESSION: No acute fracture. Soft tissue swelling is slightly decreased. Electronically signed by: Tone Hayward MD 04/04/2024 09:56 AM EDT
[2024-04-04 08:45] VITALS: BP 140/59; PULSE 56; RESP 18; TEMP 36.4; O2SAT 96; BMI 28.8
--- OUTSIDE RECORDS SUMMARY | 2024-04-04 08:57 | XMS_ITS ---
Author Organization [facility] Address [address] [place] [address] Care Team Providers Care Civil Engineering Drafter Name Role Phone Yovani [place] Primary Care Provider Demond Rogers Unavailable [phone] ALLERGIES No Known Allergies REASON FOR VISIT [...] foot (M20.12) Active confirmed Acquired hallux valgus (88781360) VITAL SIGNS Height 5 ft 10 in in 07/17/2023 Weight 190 lbs 07/17/2023 BMI 27.26 kg/m2 07/17/2023 Encounters Encounter Location Date Provider Diagnosis [facility] [address] [place] [address] 07/17/2023 Demond Mi Pain in left foot [...]
--- OUTSIDE RECORDS SUMMARY | 2024-04-04 08:57 | XMS_ITS | Patient Health Record ---
Author Organization [facility] Address [address] [place] [address] Care Team Providers Care Sr. Merchandise Planner Name Role Phone Yovani [place] Primary Care Provider Demond Rogers Unavailable [phone] ALLERGIES No Known Allergies REASON FOR REFERRAL [...] foot (M20.12) Active confirmed Acquired hallux valgus (80609161) VITAL SIGNS Height 5 ft 10 in in 07/17/2023 Weight 190 lbs 07/17/2023 BMI 27.26 kg/m2 07/17/2023 Encounters Encounter Location Date Provider Diagnosis [facility] [address] [place] [address] 07/17/2023 Demond Mi Pain in left foot [...] Insured Coverage Start Date Coverage End Date [facility] [address] [facility] [address] [id number] Sai Shearer Self - patient is the insured MEDICAL (GENERAL) HISTORY Medical History History ICD Code Back,Hip,and Knee pain Broken bones detached retina Surgical History Surgery Date(Month/Year) detached retina 1979 broken finger compound fx 1988
--- NOTE | 2024-04-04 09:36 | ED_ITS ---
HPI - Extremity Problem General Chief complaint: Extremity Problem Stated complaint: Toes changing color has cast on Time Seen by Provider: 04/04/24 09:10 Source: patient Mode of arrival: ambulatory Limitations: no limitations History of Present Illness ED Provider: Peterson CLARK HPI Narrative: 59-year-old male no significant medical history presents with bruising to left toes for the past day, patient reports that he was told on Thursday that he had an avulsion fracture to his left foot/ankle region, he will follow up with Orthopedics however due to the holiday weekend has not yet called to schedule an appointment. He reports this happened after he jumped off a platform and rolled his ankle. He has noted some swelling and bruising to the toes in particular. He has not been elevating feet often. No numbness, tingling or new injuries Related Data Previous Rx's ?Medication ?Instructions ?Recorded oxycodone 5 mg tablet 5 mg PO Q8H PRN pain (scale score 04/02/24 4-6) #7 tabs Allergies Allergy/AdvReac Type Severity Reaction Status Date / Time No Known Allergies Allergy Verified 04/04/24 08:45 Review of Systems Review of Systems: Yes all other systems are reviewed and are negative [facility] Past Medical History Attestation statement: The following information was validated with the patient. Source: old records reviewed and nursing notes reviewed Social History Social History Advance Directives: No Advance Directives Information Provided: No Physical Exam Vital Signs: Vital Signs: Last Vital Signs Temp 97.6 F 04/04/24 08:45 Pulse 56 04/04/24 08:45 Resp 18 04/04/24 08:45 BP 140/59 H 04/04/24 08:45 Pulse Ox 96 04/04/24 08:45 O2 Del Method Room Air 04/04/24 08:45 BMI result Body Mass Index 28.8 vss Appearance: Alert.? Oriented X3.? No acute cardiopulmonary distress distress.? Head: Normocephalic, atraumatic, no step-offs or deformities CVS: Pulses normal.? Respiratory: No respiratory distress.? Abdomen: Soft and nontender.? Skin: ? Normal skin color. Extremities: 5/5 strength to bilateral upper and lower extremities + ecchymosis to left toes 1-5 2+ Dp/AT pulses equal and b/l able to wiggle all toes b/l. Cap refil <2 seconds equal and b/l. Normal distal sensation. Neuro: Oriented X 3.? No motor deficit.? No sensory deficit. Course Reevaluation(s) Reevaluation #1: Re-splinted L foot. Repeat imaging done and pending. Time: 09:44 Reevaluation #2: Educated patient on diagnosis and treatment plan, answered all question, patient verbalizes understanding. At this time patient will be discharged home, advised to return with new or worsening symptoms. Educated on worrisome signs and symptoms and when to return. At this time I feel comfortable discharge home. Time: 09:44 Medical Decision Making Medical Decision Making MDM Narrative: 59 year old male presents w/ left toe bruising X 1 day PE + ecchymosis to left toes 1-5 2+ Dp/AT pulses equal and b/l able to wiggle all toes b/l. Cap refil <2 seconds equal and b/l. Normal distal sensation. Hx and pe concerning for dependent eccymosis. Unlikely acute threat to limb, nv compromise, arterial or venous occlusion Plan- repeat imaging as recommended Differential Diagnosis Differential Diagnoses: The differential diagnosis associated with the presentation includes Hx and pe concerning for dependent eccymosis. Unlikely acute threat to limb, nv compromise, arterial or venous occlusion Admission/Observation Consideration of admission/observation: Escalation of care including admission/observation considered Not indicated Independent Interpretation I performed an independent interpretation of an: Plain X-Ray Radiology Impression Discussion of test interpretation with radiology: I have reviewed the radiologist's reading. External Record Review External record reviewed: Outpatient record Discharge Plan Discharge Clinical Impression: Avulsion fracture Patient Disposition: Home, Self-Care Instructions: Ankle Fracture (DC) Additional Instructions: Take your medications as prescribed. If you were prescribed antibiotics today, it is important that you take your medication to their entirety, do not skip any doses, do not finish them early. Follow-up with your primary care provider this week. Return to the emergency department with new or worsening symptoms. Such as fevers, chills, chest pain, shortness of breath, nausea, vomiting, dizziness, headache, vision changes, lethargy In case of emergency call 911 Prescriptions: No Action oxycodone 5 mg tablet 5 mg PO Q8H PRN (Reason: pain (scale score 4-6)) Qty: 7 0RF Rx Instructions: Partial Fill upon patient request. Referrals: [facility] [Provider Group] - 1 day Physician,None [Primary Care Provider] - 2 days Stand Alone Forms: Work/School Release Print Language: Gabonese
[2024-04-04 09:40] VITALS: BP 140/59; PULSE 56; RESP 18; TEMP 36.4; O2SAT 96
== END 2024-04-04 09:41 | disposition home or self-care (01) ==
PROVIDERS: Emergency Provider Emergency Medicine
DX: S92.912A Unspecified fracture of left toe(s), initial encounter for closed fracture (principal); X58.XXXA Exposure to other specified factors, initial encounter; Y93.89 Activity, other specified; Y92.9 Unspecified place or not applicable; Y99.9 Unspecified external cause status; M79.675 Pain in left toe(s)
CPT/HCPCS: 73600; 73620; 99282; 99283